=== PATIENT | male | born 1945 ===

== ENCOUNTER 2021-05-30 11:40 | Outpatient (REF) | payer MEDICARE, SELFPAY ==
[2021-05-30 14:34] LABS: Abs Immature Grans 0.01 10^3/uL (0.0-0.06); Absolute Basophil Count 0.05 10^3/uL (0.0-0.2); Absolute Eosinophil Count 0.35 10^3/uL (0.0-0.7); Absolute Lymphocyte Count 1.74 10^3/uL (1.2-3.4); Absolute Monocyte Count 0.65 10^3/uL (0.1-0.8); Absolute Neutrophil Count 3.21 10^3/uL (1.2-6.7); Basophils % 0.8; Eosinophils % 5.8; HCT 43.7 % (40.0-50.0); HGB 14.3 g/dL (13.5-17.5); Immature Grans % 0.2; MCH 31.2 pg (27.0-33.0); MCHC 32.7 % (32.0-36.0); MCV 95.2 fL (80-95); MPV 12.1 fL (8.0-11.0); Monocytes % 10.8; Neutrophils % 53.4; Nucleated RBC 0 %; Platelet Count 162 10^3/uL (130-400); RBC 4.59 10^6/uL (4.36-5.78); RDW 13.5 % (11.8-14.1); WBC 6.01 10^3/uL (4.4-10.8)
[2021-05-30 15:37] LABS: ALT 40 U/L (16-63); AST 25 U/L (15-37); Albumin 3.5 g/dL (3.4-5.0); Alkaline Phosphatase 52 U/L (46-116); Anion Gap 7.9 mmol/L (3-11); BUN 20 mg/dL (7-18); CO2 26.1 mmol/L (21.0-32.0); CREATININE 1.1 mg/dL (0.70-1.30); Calcium 8.9 mg/dL (8.5-10.1); Chloride 105 mmol/L (98-107); Glucose 133 mg/dL (74-106); Potassium 4.4 mmol/L (3.5-5.1); Sodium 139 mmol/L (136-145); Total Protein 6.8 g/dL (6.4-8.2)
== END 2021-05-30 11:41 | disposition home or self-care (01) ==
LOC: LBN 11:40
PROVIDERS: Visit Provider Family Medicine
DX: R10.31 Right lower quadrant pain (principal)
CPT/HCPCS: 80053; 85025